=== PATIENT | female | born 1980 | race Caucasian/White ===

== ENCOUNTER 2018-07-07 10:30 | Outpatient (RCR) | payer OTHER, SELFPAY ==
--- NOTE | 2018-05-26 13:00 | PT.OIE ---
Current Diagnoses Other female genital prolapse (05/26/18) Past Surgical History (Last Updated 04/01/18 @ 15:01 by Zuly Miguel) History of repair of ACL (Resolved) History of third molar tooth extraction (Resolved) Provider Visit Care Team Role Provider Type Janet Sterling MD Attending Provider Physician Specialty: TITLE I INSTRUCTIONAL ASSISTANT Address: [address] [place] [address], [id number] Email: [email or web address] Physical Therapy Initial Evaluation PT-OP-A Visit Information Start: 05/26/18 12:40 Freq: Status: Active Protocol: Document 05/26/18 13:00 AMB (Rec: 05/26/18 13:21 AMB [email or web address]) Out-Patient Physical Therapy Visit Information Visit Information Visit Type Initial Evaluation Visit Start Time 13:00 Visit Stop Time 13:45 Total Visit Minutes 45 Visit Number 1 Evaluation Information Evaluation Date 05/26/18 PT-OP-B Current Condition Start: 05/26/18 12:40 Freq: Status: Active Protocol: Document 05/26/18 13:00 AMB (Rec: 05/30/18 12:29 AMB [email or web address]) Current Condition History of Current Condition Onset Date 01/31/18 Current Complaints prolapse History of Current Condition The patient attends PT after the of her son. She has had one delivery that was vaginal and she does report tearing, she thinks a grade one or two. She denies any leaking, but has noted pelvic heaviness since the delivery, although she does feel it is a bit better. She has a history of low back pain ( current 2-4/10; worst 5/10) and SI pain during . She is currently . Prior Functional Status Baseline Function- ADL's Independent Baseline Function- Mobility Independent Current Functional Impairments (Reported) Functional Limitations- ADL's Pelvic heaviness, has not returned to intercourse Personal Factors Other Personal Factors That May Effect Pt lives on [facility] ( [place] and there is no daycare for children under 1 on the [place]). History of SI pain, current low back pain . PT-OP-C Subjective Start: 05/26/18 12:40 Freq: Status: Active Protocol: Document 05/26/18 13:00 AMB (Rec: 05/30/18 12:29 AMB [email or web address]) Patient Questionnaires Pelvic Pain and Urgency/Frequency Patient Symptom Scale Pelvic Pain Score 1 PT-OP-I Pelvic Floor Start: 05/26/18 12:40 Freq: Status: Active Protocol: Document 05/26/18 13:00 AMB (Rec: 05/30/18 12:29 AMB [email or web address]) Pelvic Floor Assessment Urine Pelvic Floor Surgery No Urinary Symptoms Prolapse Falling Out Feeling/Heavy Bowel Bowel Surgery No Pelvic Clock Pelvic Clock 3-6 Tenderness Pelvic Clock 6-9 Tenderness Prolapse Uterine Prolapse Grade 2 Perineal Descent Resting Absent Bearing Present Contraction Ability Manual Muscle Testing Left 2 Manual Muscle Testing Right 2 Manual Muscle Testing Anterior 2 Manual Muscle Testing Posterior 3 Muscle Endurance (Seconds) 5 Number of Quick Contractions In 10 3 Seconds Comments Pelvic Floor Comments Tenderness over scar tissue at perineum, diastasis recti of 1 finger width superior to umbilicus. PT-OP-T Assessment and Plan Start: 05/26/18 12:40 Freq: Status: Active Protocol: Document 05/26/18 13:00 AMB (Rec: 05/30/18 12:35 AMB [email or web address]) Physical Therapy Assessment Rehab Potential Rehabilitation Potential Good Evaluation Complexity Number of Personal Factors/Comorbidities 1-2 Clinical Presentation at Evaluation Stable Impairments Impairments Pain Strength Goals Two Impairment Prolapse Short Term Goal (STG) The patient will be independent with a HEP for her pelvic floor strengthening and diastasis recti. STG Duration 06/23/18 Medication Aide Goal (LTG) The patient will be able to exercise without noticing pelvic heaviness. LTG Duration 07/21/18 One Impairment Pelvic floor strength Short Term Goal (STG) The patient will have 4/5 levator ani strength. STG Duration 06/23/18 LTG Duration 07/21/18 Assessment Summary Assessment The patient presents to PT with prolapse following the vaginal delivery with tearing of her first child. She does not currently have leaking, but she has not returned to her previous activity level ( while she has been walking, she has not been running) and she has not yet returned to intercourse. Given her history of low back and SI pain, she will benefit from pelvic floor physical therapy for strengthening to make sure that she is able to return to her previous function, improve her core strength safely, and avoid leaking and further pain. Physical Therapy Plan Frequency and Duration Frequency of Treatment 1x/Week Duration of Treatment 8 weeks Plan of Care Start Date 05/26/18 Plan of Care End Date 07/21/18 Therapeutic Interventions Therapeutic Interventions Home Exercise Program Manual Therapy Neuromuscular Re-education Self-Care/Home Management Soft Tissue Mobilization Therapeutic Activities Therapeutic Exercises Modalities Biofeedback Next Visit Focus/Plan Next Note Type Treatment Note Next Visit Plan Progress pelvic floor strengthening with biofeedback , safe core strengtheing for diastasis recti.
--- NOTE | 2018-05-26 13:00 | PT.OPPOC ---
Current Diagnoses Other female genital prolapse (05/26/18) Provider Visit Care Team Role Provider Type Janet Sterling MD Attending Provider Physician Specialty: RAYON WINDER Address: [address] [place] [address], [address] Email: [email or web address] Plan Of Care PT-OP-T Assessment and Plan Start: 05/26/18 12:40 Freq: Status: Active Protocol: Document 05/26/18 13:00 AMB (Rec: 05/30/18 12:35 AMB [email or web address]) Physical Therapy Assessment Rehab Potential Rehabilitation Potential Good Evaluation Complexity Number of Personal Factors/Comorbidities 1-2 Clinical Presentation at Evaluation Stable Impairments Impairments Pain Strength Goals Two Impairment Prolapse Short Term Goal (STG) The patient will be independent with a HEP for her pelvic floor strengthening and diastasis recti. STG Duration 06/23/18 Retirement Goal (LTG) The patient will be able to exercise without noticing pelvic heaviness. LTG Duration 07/21/18 One Impairment Pelvic floor strength Short Term Goal (STG) The patient will have 4/5 levator ani strength. STG Duration 06/23/18 LTG Duration 07/21/18 Assessment Summary Assessment The patient presents to PT with prolapse following the vaginal delivery with tearing of her first child. She does not currently have leaking, but she has not returned to her previous activity level ( while she has been walking, she has not been running) and she has not yet returned to intercourse. Given her history of low back and SI pain, she will benefit from pelvic floor physical therapy for strengthening to make sure that she is able to return to her previous function, improve her core strength safely, and avoid leaking and further pain. Physical Therapy Plan Frequency and Duration Frequency of Treatment 1x/Week Duration of Treatment 8 weeks Plan of Care Start Date 05/26/18 Plan of Care End Date 07/21/18 Therapeutic Interventions Therapeutic Interventions Home Exercise Program Manual Therapy Neuromuscular Re-education Self-Care/Home Management Soft Tissue Mobilization Therapeutic Activities Therapeutic Exercises Modalities Biofeedback Next Visit Focus/Plan Next Note Type Treatment Note Next Visit Plan Progress pelvic floor strengthening with biofeedback , safe core strengtheing for diastasis recti. Plan of Care Dates Plan of Care Start Date 05/26/18 Plan of Care End Date 07/21/18 Please Sign and Return: I have reviewed this Plan of Care and certify that the skilled therapy services above are required to meet the patient?s needs. Physician Signature Date Printed Name and Credentials Clinical Instructor Signature Printed Name and Credentials
--- NOTE | 2018-06-10 07:35 | PT.OTN ---
Current Diagnoses Other female genital prolapse (06/09/18) Physical Therapy Treatment Note PT-OP-A Visit Information Start: 05/26/18 12:40 Freq: Status: Active Protocol: Document 06/09/18 13:00 AMB (Rec: 06/10/18 07:34 AMB [email or web address]) Out-Patient Physical Therapy Visit Information Visit Information Visit Type Treatment Note Visit Start Time 13:00 Visit Stop Time 13:45 Total Visit Minutes 45 Visit Number 2 Evaluation Information Evaluation Date 05/26/18 PT-OP-B Current Condition Start: 05/26/18 12:40 Freq: Status: Active Protocol: Document 05/26/18 13:00 AMB (Rec: 05/30/18 12:29 AMB [email or web address]) Current Condition History of Current Condition Onset Date 01/31/18 Current Complaints prolapse History of Current Condition The patient attends PT after the of her son. She has had one delivery that was vaginal and she does report tearing, she thinks a grade one or two. She denies any leaking, but has noted pelvic heaviness since the delivery, although she does feel it is a bit better. She has a history of low back pain ( current 2-4/10; worst 5/10) and SI pain during . She is currently . Prior Functional Status Baseline Function- ADL's Independent Baseline Function- Mobility Independent Current Functional Impairments (Reported) Functional Limitations- ADL's Pelvic heaviness, has not returned to intercourse Personal Factors Other Personal Factors That May Effect Pt lives on [facility] ( [place] and there is no daycare for children under 1 on the [place]). History of SI pain, current low back pain . PT-OP-C Subjective Start: 05/26/18 12:40 Freq: Status: Active Protocol: Document 06/09/18 13:00 AMB (Rec: 06/10/18 07:34 AMB [email or web address]) OP-PT Subjective Patient Comments Patient Comments Pt states she is more aware of her prolapse now that she has been doing exercises. She has been focusing on her pelvic floor, not as much core , but she continues to have back pain. PT-OP-I Pelvic Floor Start: 05/26/18 12:40 Freq: Status: Active Protocol: Document 05/26/18 13:00 AMB (Rec: 05/30/18 12:29 AMB [email or web address]) Pelvic Floor Assessment Urine Pelvic Floor Surgery No Urinary Symptoms Prolapse Falling Out Feeling/Heavy Bowel Bowel Surgery No Pelvic Clock Pelvic Clock 3-6 Tenderness Pelvic Clock 6-9 Tenderness Prolapse Uterine Prolapse Grade 2 Perineal Descent Resting Absent Bearing Present Contraction Ability Manual Muscle Testing Left 2 Manual Muscle Testing Right 2 Manual Muscle Testing Anterior 2 Manual Muscle Testing Posterior 3 Muscle Endurance (Seconds) 5 Number of Quick Contractions In 10 3 Seconds Comments Pelvic Floor Comments Tenderness over scar tissue at perineum, diastasis recti of 1 finger width superior to umbilicus. PT-OP-Q Treatments Start: 05/26/18 12:40 Freq: Status: Active Protocol: Document 06/09/18 13:00 AMB (Rec: 06/10/18 07:34 AMB [email or web address]) Therapeutic Exercises Supine Exercises 3 Supine Exercise Name TrA stab with SLR Comments post pelvic tilt 2 Supine Exercise Name long holds 1 Supine Exercise Name quick flicks Sitting Exercises 2 Sitting Exercise Name hip add isometric Comments with pelvic floor contract 1 Sitting Exercise Name hip abd #3 t band Comments with pelvic floor contract Standing Exercises 1 Standing Exercise Name quick flicks in standing, WBOS , stride stance Reps/Minutes 10 Manual Therapy Treatment Taping 1 Body Location diastasis recti above umbilicus Treatment Focus alignment Type of Tape Kinesio Tape PT-OP-T Assessment and Plan Start: 05/26/18 12:40 Freq: Status: Active Protocol: Document 06/09/18 13:00 AMB (Rec: 06/10/18 07:34 AMB [email or web address]) Physical Therapy Assessment Assessment Summary Assessment Pt tolerated increased exercise well, instructed in kinesiotaping at home. Physical Therapy Plan Next Visit Focus/Plan Next Note Type Treatment Note Next Visit Plan Progress pelvic floor strengthening with biofeedback , safe core strengtheing for diastasis recti.
--- NOTE | 2018-07-07 15:32 | PT.OPDS ---
Current Diagnoses Other female genital prolapse (07/07/18) Provider Visit Care Team Role Provider Type Janet Sterling MD Attending Provider Physician Specialty: PRODUCTIVITY ENGINEER Address: [address] [place] [address], [address] Email: [email or web address] Visit Number Visit Number 3 Discharge Summary PT-OP-B Current Condition Start: 05/26/18 12:40 Freq: Status: Active Protocol: Document 05/26/18 13:00 AMB (Rec: 05/30/18 12:29 AMB [email or web address]) Current Condition History of Current Condition Onset Date 01/31/18 Current Complaints prolapse History of Current Condition The patient attends PT after the of her son. She has had one delivery that was vaginal and she does report tearing, she thinks a grade one or two. She denies any leaking, but has noted pelvic heaviness since the delivery, although she does feel it is a bit better. She has a history of low back pain ( current 2-4/10; worst 5/10) and SI pain during . She is currently . Prior Functional Status Baseline Function- ADL's Independent Baseline Function- Mobility Independent Current Functional Impairments (Reported) Functional Limitations- ADL's Pelvic heaviness, has not returned to intercourse Personal Factors Other Personal Factors That May Effect Pt lives on [facility] ( Therapy[place] and there is no daycare for children under 1 on the [place]). History of SI pain, current low back pain . 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 PT-OP-I Pelvic Floor Start: 05/26/18 12:40 Freq: Status: Active Protocol: Document 07/07/18 10:30 AMB (Rec: 07/07/18 15:31 AMB [email or web address]) Pelvic Floor Assessment Prolapse Uterine Prolapse Grade 2 Contraction Ability Manual Muscle Testing Left 3 Manual Muscle Testing Right 3 Manual Muscle Testing Anterior 3 Manual Muscle Testing Posterior 3 Muscle Endurance (Seconds) 7 Number of Quick Contractions In 10 5 Seconds PT-OP-T Assessment and Plan Start: 05/26/18 12:40 Freq: Status: Active Protocol: Document 07/07/18 10:30 AMB (Rec: 07/07/18 15:08 AMB [email or web address]) Physical Therapy Assessment Goals Two Impairment Prolapse Short Term Goal (STG) The patient will be independent with a HEP for her pelvic floor strengthening and diastasis recti. STG Duration MET Mcfp Goal (LTG) The patient will be able to exercise without noticing pelvic heaviness. LTG Duration MET One Impairment Pelvic floor strength Short Term Goal (STG) The patient will have 4/5 levator ani strength. STG Duration PROGRESS MADE Assessment Summary Assessment Pt doing well with exercises, her prolapse appears the same on exam. Will take time to resolve more. Given written HEP how to progress exercises independently. Physical Therapy Plan Discharge Physical Therapy Discharge Comments Pt is having difficulty coming to PT due to [place] the ferry and having her son.
--- NOTE | 2018-07-07 15:37 | PT.OTN ---
Current Diagnoses Other female genital prolapse (07/07/18) Physical Therapy Treatment Note PT-OP-A Visit Information Start: 05/26/18 12:40 Freq: Status: Active Protocol: Document 07/07/18 10:30 AMB (Rec: 07/07/18 13:33 AMB [id number]) Out-Patient Physical Therapy Visit Information Visit Information Visit Type Discharge Summary Visit Start Time 10:30 Visit Stop Time 11:15 Total Visit Minutes 45 Visit Number 3 PT-OP-B Current Condition Start: 05/26/18 12:40 Freq: Status: Active Protocol: Document 05/26/18 13:00 AMB (Rec: 05/30/18 12:29 AMB [email or web address]) Current Condition History of Current Condition Onset Date 01/31/18 Current Complaints prolapse History of Current Condition The patient attends PT after the of her son. She has had one delivery that was vaginal and she does report tearing, she thinks a grade one or two. She denies any leaking, but has noted pelvic heaviness since the delivery, although she does feel it is a bit better. She has a history of low back pain ( current 2-4/10; worst 5/10) and SI pain during . She is currently . Prior Functional Status Baseline Function- ADL's Independent Baseline Function- Mobility Independent Current Functional Impairments (Reported) Functional Limitations- ADL's Pelvic heaviness, has not returned to intercourse Personal Factors Other Personal Factors That May Effect Pt lives on [facility] ( Therapy/Recovery [place] PT [place] and there is no daycare for children under 1 on the [place]). History of SI pain, current low back pain . PT-OP-C Subjective Start: 05/26/18 12:40 Freq: Status: Active Protocol: Document 07/07/18 10:30 AMB (Rec: 07/07/18 13:33 AMB [id number]) OP-PT Subjective Patient Comments Patient Comments The patient reports she thinks that she may feel the prolapse when she is feeling drier unloader vaginally. PT-OP-I Pelvic Floor Start: 05/26/18 12:40 Freq: Status: Active Protocol: Document 07/07/18 10:30 AMB (Rec: 07/07/18 15:31 AMB [email or web address]) Pelvic Floor Assessment Prolapse Uterine Prolapse Grade 2 Contraction Ability Manual Muscle Testing Left 3 Manual Muscle Testing Right 3 Manual Muscle Testing Anterior 3 Manual Muscle Testing Posterior 3 Muscle Endurance (Seconds) 7 Number of Quick Contractions In 10 5 Seconds PT-OP-Q Treatments Start: 05/26/18 12:40 Freq: Status: Active Protocol: Document 07/07/18 10:30 AMB (Rec: 07/07/18 13:33 AMB [id number]) Therapeutic Exercises Standing Exercises 3 Standing Exercise Name mini lunges Comments with PF 2 Standing Exercise Name mini squats Comments with PF Other Exercises 2 Other Exercise Name kneeling plank Reps/Minutes 30x2 1 Other Exercise Name quadruped LE/ UE ext Comments with pelvic floor contract Manual Therapy Treatment Other Other Manual Treatments perineal scar massage PT-OP-T Assessment and Plan Start: 05/26/18 12:40 Freq: Status: Active Protocol: Document 07/07/18 10:30 AMB (Rec: 07/07/18 15:08 AMB [email or web address]) Physical Therapy Assessment Goals Two Impairment Prolapse Short Term Goal (STG) The patient will be independent with a HEP for her pelvic floor strengthening and diastasis recti. STG Duration MET Senior Care Goal (LTG) The patient will be able to exercise without noticing pelvic heaviness. LTG Duration MET One Impairment Pelvic floor strength Short Term Goal (STG) The patient will have 4/5 levator ani strength. STG Duration PROGRESS MADE Assessment Summary Assessment Pt doing well with exercises, her prolapse appears the same on exam. Will take time to resolve more. Given written HEP how to progress exercises independently. Physical Therapy Plan Discharge Physical Therapy Discharge Comments Pt is having difficulty coming to PT due to [place] ferry and having [place].
== END 2018-07-08 13:50 ==
LOC: PHYS 10:30
PROVIDERS: Visit Provider Obstetrics & Gynecology
DX: N81.89 Other female genital prolapse (principal)
CPT/HCPCS: 97110; 97140; 97161

== ENCOUNTER → 2020-08-10 16:03 | Outpatient (CLI) | payer OTHER, SELFPAY | PROVIDERS: PCP Family Medicine; Visit Provider Specialist | DX: R30.0 Dysuria (principal) | CPT/HCPCS: 87086 ==

== ENCOUNTER → 2025-05-09 11:50 | Outpatient (CLI) | payer OTHER, SELFPAY ==
[2025-05-09 14:02] LABS: Follicle Stimulating Hormone 3.33 mIU/mL
[2025-05-09 14:16] LABS: TSH w/ Reflex to FT4 1.44 uIU/mL (0.47-4.68)
[2025-05-09 14:17] LABS: Estradiol, Total 121.0 pg/mL
== END ==
PROVIDERS: PCP Student in an Organized Health Care Education/Training Program; Referring Provider Obstetrics & Gynecology; Visit Provider Obstetrics & Gynecology
DX: N92.6 Irregular menstruation, unspecified (principal)
CPT/HCPCS: 36415; 82670; 83001; 84146; 84443